=== PATIENT | male | born 1945 | race Caucasian/White ===

== ENCOUNTER → 2024-05-30 09:29 | Outpatient (REF) | payer MEDICARE, BC, SELFPAY ==
[2024-05-30 11:44] LABS: % Basophils 0.7 % (0-2); % Eosinophils 4.7 % (0-6); % Immature Granulocytes 0.4 % (0-0.5); % Lymphocytes 20.4 % (20.5-51.1); % Monocytes 13.8 % (1.7-9.3); Absolute Eosinophils 0.2 10^3/uL (0-0.7); Absolute Lymphocytes 0.9 10^3/uL (1.2-3.4); Absolute Monocytes 0.6 10^3/uL (0.1-0.6); Absolute Neutrophils 2.7 10^3/uL (1.4-6.5); Hematocrit 34.9 % (39.0-52.0); Hemoglobin 11.8 g/dL (13.0-18.0); Mean Corp Hgb Conc. 33.8 g/dL (33.0-37.0); Mean Corpuscular Hgb 34.1 pg (27.0-31.0); Mean Corpuscular Volume 100.9 fL (80.0-94.0); Mean Platelet Volume 11.1 fL (7.4-10.4); Nucleated Red Blood Cells % 0 % (-); Platelet Count 192 10^3/uL (130-400); Red Blood Cell Count 3.46 10^6/uL (4.70-6.10); Red Cell Dist. Width 12.9 % (11.5-14.5); White Blood Cell Count 4.5 10^3/uL (4.8-10.8)
[2024-05-30 12:18] LABS: ALT (SGPT) 38 U/L (0-50); AST (SGOT) 37 U/L (17-59); Albumin 4.6 g/dl (3.5-5.0); Alkaline Phosphatase 51 U/L (38-126); Blood Urea Nitrogen 25 mg/dl (9-20); Calcium 9.6 mg/dl (8.4-10.2); Carbon Dioxide 28 mmol/L (22-30); Chloride 100 mmol/L (98-107); Glucose 88 mg/dl (70-99); HDL Cholesterol 104 mg/dl; LDL Cholesterol, Calculated 74 mg/dl; Potassium 3.9 mmol/L (3.5-5.1); Sodium 140 mmol/L (135-145); Total Cholesterol 190 mg/dl (50-199); Total Protein 6.9 g/dl (6.3-8.2); Triglyceride 64 mg/dl (10-149); Very Low Density Lipoprotein 12 mg/dl (0-30); eGFR > 60.00
[2024-05-30 12:41] LABS: PSA, Total - Screen 1.08 ng/ml (0.0-4.0); TSH Reflex To Free T4 1.91 uIU/ml (0.47-4.68)
== END ==
LOC: REG 09:29
PROVIDERS: ATTENDING PHYSICIAN Internal Medicine
DX: R76.8 Other specified abnormal immunological findings in serum (principal); D64.9 Anemia, unspecified; I10 Essential (primary) hypertension; E78.2 Mixed hyperlipidemia; Z12.5 Encounter for screening for malignant neoplasm of prostate
CPT/HCPCS: 36415; 80053; 80061; 84443; 85025; G0103

== ENCOUNTER 2025-03-07 16:13 | Emergency (ER) | payer MEDICARE, BC, SELFPAY ==
[2025-03-07 16:31] VITALS: BP 139/82
[2025-03-07 18:32] VITALS: BMI 27.3
--- NOTE | 2025-03-07 18:32 | EDRN ---
when this STEAM HAND asked the pt routine screening questions regarding alcohol consumption, the pt stated he drinks on average '5+' alcoholic beverages a day. When this STEAM HAND asked the pt routine screening questions related to any recent falls, the pt
repeatedly stated 'i refuse to answer that question.'
this STEAM HAND will notify the ER provider of above.
[2025-03-07 18:33] VITALS: BP 161/99
--- NOTE | 2025-03-07 19:13 | ED.GENMED ---
History of Present Illness
General
Chief Complaint: Back Pain
Time Seen by Provider: 03/07/25 19:13
History of Present Illness
History of Present Illness:
REVIEW OF OLD RECORDS
The patient was in the Emergency Department 2022 with abdominal pain and had a colonoscopy in 2021 and I see no prior visits related to back pain into the emergency department
MRI L-spine shows an acute compression fracture of L5 vertebral body with mild loss of height suggestion of osteopenia there is also left subarticular disc extrusion with resultant severe left lateral recess narrowing with contacting of the
left-sided exiting and transiting nerve roots
Note:
CHIEF COMPLAINT(S)
Left hip pain and back pain.
HISTORY OF PRESENT ILLNESS
The patient is a 80-year-old male who presented to the emergency department due to concerns following an MRI requested by Dr. Posadas. The MRI revealed a disc problem and sciatica, prompting the referral. The left hip pain began approximately one
month ago, while the back pain has been a chronic issue for approximately 50 years, secondary to scoliosis. The patient notes that the left hip pain is 'really bad.' No bowel or bladder incontinence is reported.
The patient describes experiencing neuropathy and has been taking ibuprofen as needed for pain. There is noted bruising on the feet, more pronounced on the right side. The patient also reports drinking alcohol daily but denies being in the emergency
department for alcohol-related issues.
CHRONIC MEDICAL CONDITIONS SIGNIFICANTLY AFFECTING CARE
- Chronic back pain due to scoliosis.
- Sciatica.
- Neuropathy.
SOCIAL DETERMINANTS AFFECTING HEALTH
The patient reports daily alcohol consumption.
PHYSICAL EXAM
- Musculoskeletal: Good mobility of the left ankle when moved up and down.
- Vascular: Good dorsalis pedis pulses.
- Neurologic: No sensory deficits noted upon touch.
- Skin: Bruising observed on the feet, more so on the right side.
- General: Well appearing in no distress
- HEENT: Moist oral mucosa
- Cardiovascular: No murmurs, normal heart rate, regular rhythm, No chest wall tenderness
- Pulmonary: No respiratory distress, breath sounds are clear and equal
- Abdomen: Soft with no peritoneal signs, no tenderness
- Neurologic: Excellent strength all extremities, no coordination deficits
- Psychiatric: Appropriate mental status, normal insight and judgement
- Back: No midline T or L-spine tenderness, very good L5 and S1 strength on physical examination, he was able to stand without difficulty
- Extremities: Nontender, no edema, moves all extremities equally
- Skin: No rash, no lesions
PLAN
1. Communicate with a coding compliance specialist to review the MRI findings further.
2. Consider reaching out to orthopedic services for left hip pain management.
3. Discuss referral options suggested by Dr. Zamora for integrative therapies.
DIFFERENTIAL DIAGNOSIS
The Differential Diagnosis includes, in no particular order and is not limited to:
1. Lumbar Disc Herniation
2. Sciatica
3. Spinal Stenosis
4. Hip Osteoarthritis
5. Neuropathy
6. Chronic Alcohol-related Neuropathy
7. Musculoskeletal Pain
8. Sacroiliac Joint Dysfunction
9. Age-related Degenerative Disc Disease
10. Scoliosis-Related Pain
CARE-UPDATE
03/07/25 - 19:27
Consultation was initiated with Dr. Woodward for further orthopedic evaluation. Awaiting reply for additional management guidance - recommended d/w neurosurg
CARE-UPDATE
03/07/25 - 19:[address] Garrett in neurosurgery supports outpatient evaluation. Admission is not deemed necessary based on current assessment.
CARE-UPDATE
03/07/25 - :46
Discussed the MRI findings with Dr. Garrett, a neurosurgeon, who concurred that there are no indications for hospital admission at this time. Provided a recommendation for follow-up with a neurosurgeon or coding compliance specialist to monitor the condition
further. Also considered the suggestion of [facility] for critical care clinical nurse specialist as an adjunct, although emphasis was placed on consulting a pediatric medical assistant. Planned discharge with instructions for the patient to arrange for
transportation home.
Past History
Past History
ED Past Medical History: Asthma, HTN, Hypercholesterolemia and Other (PNA)
ED Past Surgical History: None
Social History
Tobacco: Former smoker
Alcohol: Daily (4-5 drinks /day)
Drug: None
Personal: (femal [employer])
Living: with family
Phy Exam
Physical Exam
Physical Exam:
See HPI
Course
Vital Signs
Initial and Last Documented VS:
Initial Vital Signs
Temp Pulse Resp BP Pulse Ox
36.5 C 93 18 139/82 96
03/07/25 16:31 03/07/25 16:31 03/07/25 16:31 03/07/25 16:31 03/07/25 16:31
Last Documented Vital Signs
Temp Pulse Resp BP Pulse Ox
36.5 C 87 18 161/99 99
03/07/25 16:31 03/07/25 18:33 03/07/25 18:33 03/07/25 18:33 03/07/25 18:33
*Pulse Oximetry
Patient hypoxic: no (99% RA)
*Critical Care Note
Total Time (30-74mins, 75-104mins- exclusive of procedures): Not Applicable
ED Attending Note
-
Portions of this chart may have been created with voice recognition software.� Occasional wrong word or��sound alike� substitutions may have occurred due to the inherent limitations of voice recognition software.
Discharge Plan
Departure
Prescriptions:
No Action
fluticasone propion-salmeterol [Advair Diskus] 1 EACH blister with device
1 ea IH BID
Patient Comments:
Patient unsure of dose.
sildenafil [Viagra] 100 MG tablet
100 mg PO PRN PRN (Reason: sexual activity)
triamcinolone acetonide [Nasacort] 10.8 ML aerosol,spray
10.8 ml NS DAILY
valsartan 40 MG tablet
40 mg PO DAILY
tiotropium bromide [Spiriva with HandiHaler] 18 MCG capsule, w/inhalation device
18 mcg IH BID
Patient Comments:
Patient unsure of dose
azithromycin 250 MG tablet
250 mg PO DAILY Qty: 4 0RF
prednisone 10 MG tablet
10 mg PO Daily Qty: 30 0RF
Rx Instructions:
Please take 40mg daily for 3 days, Then 30mg daily for 3 days, Then 20mg daily for 3 days and then 10mg daily for 3 days.
Referrals:
Albert Zamora I., [Family Provider, Internal Medicine]
Interventions
Interventions:
*Risk Screen - Suicide Last Done: 03/07/25 16:38
*General Assessment Last Done: 03/07/25 18:32
*Neglect/Abuse Screening Last Done: 03/07/25 16:38
*ED- Fall Risk Assessment Last Done: 03/07/25 18:32
*ED COVID-19 Vaccine History Last Done: 03/07/25 18:32
ED-Musculoskeletal Assessment Last Done: 03/07/25 18:34
Discharge Date and Time
Print Language: YI
== END 2025-03-07 20:07 | disposition home or self-care (01) ==
LOC: EMR 16:13
PROVIDERS: EMERGENCY PHYSICIAN Emergency Medicine; FAMILY PHYSICIAN Internal Medicine
DX: M54.50 Low back pain, unspecified (principal); E78.00 Pure hypercholesterolemia, unspecified; J45.909 Unspecified asthma, uncomplicated; G62.9 Polyneuropathy, unspecified; I10 Essential (primary) hypertension; M41.9 Scoliosis, unspecified; Z87.891 Personal history of nicotine dependence
CPT/HCPCS: 99282; 72148

== ENCOUNTER → 2025-07-25 12:35 | Outpatient (REF) | payer MEDICARE, BC, SELFPAY | LOC: MRI 3T 12:35 | PROVIDERS: ATTENDING PHYSICIAN Anesthesiology Pain Medicine; FAMILY PHYSICIAN Internal Medicine | DX: M54.12 Radiculopathy, cervical region (principal) | CPT/HCPCS: 72141 ==

== ENCOUNTER → 2025-07-25 13:43 | Outpatient (REF) | payer MEDICARE, BC, SELFPAY | LOC: RAD 13:43 | PROVIDERS: ATTENDING PHYSICIAN Internal Medicine Critical Care Medicine; FAMILY PHYSICIAN Internal Medicine | DX: R91.1 Solitary pulmonary nodule (principal) | CPT/HCPCS: 71046 ==

== ENCOUNTER 2025-08-21 06:15 | Day surgery (SDC) | payer MEDICARE, BC, SELFPAY | END 2025-08-21 10:27 | disposition home or self-care (01) | LOC: GI 06:15 | PROVIDERS: ATTENDING PHYSICIAN Internal Medicine Gastroenterology | DX: Z12.11 Encounter for screening for malignant neoplasm of colon (principal); K57.30 Diverticulosis of large intestine without perforation or abscess without bleeding; K64.8 Other hemorrhoids; D50.9 Iron deficiency anemia, unspecified; K29.70 Gastritis, unspecified, without bleeding; K31.89 Other diseases of stomach and duodenum; D12.3 Benign neoplasm of transverse colon; D12.5 Benign neoplasm of sigmoid colon; Z86.0100 Personal history of colon polyps, unspecified | CPT/HCPCS: 45385; 45380; 43239; 88305; 88342 ==